=== PATIENT | male | born 1940 | race Caucasian/White ===

== ENCOUNTER → 2017-04-05 | Outpatient (CLI) | payer MEDICARE | LOC: KOH-I 12:14 | DX: C90.00 Multiple myeloma not having achieved remission (principal) | CPT/HCPCS: 77075 ==

== ENCOUNTER → 2017-04-18 | Outpatient (CLI) | payer MEDICARE | LOC: LBRF 10:02 | DX: R77.8 Other specified abnormalities of plasma proteins (principal) | CPT/HCPCS: 84166 ==